=== PATIENT | male | born 1980 | race African-American/Black ===

== ENCOUNTER 2016-09-02 03:04 | Emergency (ER) | payer OTHER ==
[~2016-09-02] VITALS: Ht 180.3 cm; Wt 68.0 kg
[2016-09-02] MEDS ORDERED: AMOXICILLIN875 MG PO (04:15)
[2016-09-02] MEDS ORDERED: NORCO 5-325 TA1 EACH PO (04:15)
[2016-09-02 04:20] VITALS: BP 89/53
== END 2016-09-02 04:22 | disposition home or self-care (01) ==
LOC: ER 03:04
DX: K04.7 Periapical abscess without sinus (principal); K08.89 Other specified disorders of teeth and supporting structures

== ENCOUNTER 2019-03-09 15:44 | Emergency (ER) | payer OTHER ==
[~2019-03-09] VITALS: Ht 180.3 cm; Wt 63.5 kg
[~2019-03-09 15:44] MED LIST: AMOXICILLIN875 MG PO; NORCO 5-325 TA1 EACH PO
[2019-03-09 18:01] VITALS: BP 106/76
== END 2019-03-09 18:46 | disposition home or self-care (01) ==
LOC: ER 15:44
DX: S63.114A Dislocation of metacarpophalangeal joint of right thumb, initial encounter (principal); W18.39XA Other fall on same level, initial encounter; Y93.89 Activity, other specified; Y92.89 Other specified places as the place of occurrence of the external cause; Y99.8 Other external cause status

== ENCOUNTER 2020-09-08 05:03 | Emergency (ER) | payer OTHER ==
[~2020-09-08] VITALS: Ht 180.3 cm; Wt 72.6 kg
[2020-09-08 05:28] VITALS: BP 108/83
[2020-09-08] MEDS ORDERED: KEFLEX500 M1 PO (05:49)
[2020-09-08] MEDS ORDERED: NORCO5 PO (05:49)
[2020-09-08] MEDS ORDERED: NAPROSYN500 MG PO (05:49)
== END 2020-09-08 06:00 | disposition home or self-care (01) ==
LOC: ER 05:03
DX: L02.31 Cutaneous abscess of buttock (principal)

== ENCOUNTER 2020-09-11 10:23 | Emergency (ER) | payer OTHER ==
[~2020-09-11] VITALS: Ht 180.3 cm; Wt 72.6 kg
[~2020-09-11 10:23] MED LIST changes: +KEFLEX500 M1 PO; +NAPROSYN500 MG PO; +NORCO5 PO
[2020-09-11 10:26] VITALS: BP 103/64
== END 2020-09-11 10:47 | disposition home or self-care (01) ==
LOC: ER 10:23
DX: L02.31 Cutaneous abscess of buttock (principal); Z79.1 Long term (current) use of non-steroidal anti-inflammatories (NSAID); Z79.899 Other long term (current) drug therapy